=== PATIENT | male | born 1995 | race Asian ===

== ENCOUNTER 2023-03-28 22:27 | Emergency (ER) | payer BC, SELFPAY ==
[2023-03-28 22:31] VITALS: BP 122/90; PULSE 118; RESP 18; TEMP 36.1; BMI 26.7
[2023-03-28 22:33] VITALS: BP 122/90; PULSE 118; RESP 18; TEMP 36.1
--- NOTE | 2023-03-28 22:50 | EDS_ITS ---
HPI History of Present Illness Chief Complaint: Rash Informant: patient and spouse/S.O. Narrative Narrative: Patient is a 28-year-old male with no significant past medical history. Patient states that 2 days ago he ate some shrimp and food. He states that following this began with his whole body itching and then progressed to a red rash . He states that his does not have the rash and he denies any new exposures other than the food . Patient states that he had a similar reaction after eating similar food roughly 1 year ago and it resolved with just kgcf-qaa-khetfeb medication . He states he is try the bvnz-gju-pvokjse medication without any symptom improvement and secondary to this comes in for evaluation . [facility] History no medical history no medical history Home Medications prednisone 10 mg tablet 10 mg PO DAILY #48 TABLETS 03/28/23 [Rx Last Taken Unknown] Allergy/AdvReac Type Severity Reaction Status Date / Time No Known Allergies Allergy Verified 03/28/23 22:29 Social History Smoking Status: Never smoker [facility] ED Constitutional Constitutional ED: Denies chills or fever(s) ENT ENT ED: Denies sore throat Cardiovascular Cardiovascular: Denies chest pain Respiratory/Chest Respiratory/Chest: Denies cough or dyspnea Gastrointestinal Gastrointestinal: Denies abdominal pain, diarrhea, nausea or vomiting Genitourinary Genitourinary ED: Denies dysuria Musculoskeletal Musculoskeletal: Denies myalgias Integumentary Reports rash Neurologic Neurologic: Denies headache(s) Hematologic/Lymphatic Hematologic/Lymphatic: Denies easy bleeding or easy bruising EXAM Physical Exam Const Vital Signs: 03/28/23 22:31 03/28/23 22:33 Temperature 96.9 F L 96.9 F L Temperature Source Temporal Temporal Pulse Rate 118 H 118 H Respiratory Rate 18 18 Blood Pressure 122/90 H 122/90 H Blood Pressure Mean 100 100 Positive well nourished and well developed General Appearance ED: well developed HEENT Reports moist mucous membranes HEENT Narrative: No tongue or lip swelling no oral lesions no airway edema or compromise Eyes PERRL and EOMs intact bilaterally Neck supple Resp normal respiratory effort and clear to auscultation bilaterally Cardio regular rate and regular rhythm Extremity normal to inspection Neuro oriented x3, CN's II-XII intact bilaterally and no sensory deficits noted Sensorium / Orientation: alert Motor Exam: strength 5/5 throughout Psych mental status grossly normal Skin Skin Narrative: Patient has a erythematous blanchable urticarial rash that extends from his head/face into the chest abdomen back both arms and legs without involvement of the palms or soles MDM MDM MDM Narrative Medical decision making narrative: Presented to the ER in no acute respiratory distress without airway compromise. Therefore I felt no need for emergent imaging studies laboratory testing or airway stabilization. Differential diagnosis is for acute allergic reaction versus ghfk-ltaf-dur-mouth disease versus varicella-zoster. As the patient has no vomit of the palms or soles no pustule lesions no lesions in different stages of healing history and exam is most consistent with acute allergic reaction. At this time as there is no airway compromise or signs of airway edema patient will be given Kenalog and then placed on a prednisone taper but as he is not requiring airway stabilization and this is an inflammatory not infectious reaction he is otherwise safe for discharge History & Record Review Discussion w/independent historian: Patient and Significant other Discharge Plan Triage Chief Complaint: Rash ED Provider: Tank Hunter Dx/Rx/DC Orders Clinical Impression: Urticaria, Allergic reaction Instructions: ED Rodrick (Adult), Allergy Overview Prescriptions: New prednisone 10 mg tablet 10 mg PO DAILY Qty: 48 0RF Rx Instructions: 6 po qd x 3 days, 4 po qd x 3 days, 2 po qd x 3 days, 1 po qd x 3 days Primary Care Provider: Care Physician,No Primary Referrals: Care Physician,No Primary [Primary Care Provider] - Activity Restrictions/Additional Instructions: Please take the steroids as prescribed to help control/resolve your allergic reaction. It would typically take approximately 3 days for the reaction to improve. If you develop a fever over 100.4 or have difficulty breathing or swallowing or any further concerns please return to the ER for repeat evaluation. Disposition Disposition: Home, Self Care
[2023-03-28] MEDS: Triamcinolone Acetonide 40 MG/ML Vial 80 MG IM (23:09)
== END 2023-03-28 23:47 | disposition home or self-care (01) ==
LOC: ED 23:28
PROVIDERS: Emergency Provider Emergency Medicine; Visit Provider Emergency Medicine
DX: L50.9 Urticaria, unspecified (principal); T78.40XA Allergy, unspecified, initial encounter; X58.XXXA Exposure to other specified factors, initial encounter
CPT/HCPCS: 96372; 99282

== ENCOUNTER 2023-03-31 00:01 | Emergency (ER) | payer BC, SELFPAY ==
[2023-03-31 00:02] VITALS: BP 121/75; PULSE 79; RESP 16; TEMP 36.8; O2SAT 99; BMI 26.4
--- NOTE | 2023-03-31 01:07 | ED.RN ---
Pt and called out 3 times in last 15 minutes asking why it's taking so long to see the MD. Education provided.
--- NOTE | 2023-03-31 01:50 | EDS_ITS ---
HPI History of Present Illness Chief Complaint: Rash Informant: patient and spouse/S.O. Narrative Narrative: Patient is a 28-year-old male with no significant past medical history who was seen recently secondary to acute allergic reaction and placed on a prednisone taper. Patient states he has been taking the prednisone as directed and this had resolution of the rash but he still has noticed persistent itching and secondary to this comes in for evaluation [facility] Home Medications prednisone 10 mg tablet 10 mg PO DAILY #48 TABLETS 03/28/23 [Rx Last Taken Unknown] desonide 0.05 % topical cream 1 applic topical TID PRN itching #60 grams 03/31/23 [Rx Last Taken Unknown] hydroxyzine pamoate 25 mg capsule 25 mg PO 4X/DAY PRN PRN itching #40 caps 03/31/23 [Rx Last Taken Unknown] Allergy/AdvReac Type Severity Reaction Status Date / Time No Known Allergies Allergy Verified 03/31/23 00:02 Social History Smoking Status: Never smoker [facility] ED Constitutional Constitutional ED: Denies chills or fever(s) ENT ENT ED: Denies sore throat Cardiovascular Cardiovascular: Denies chest pain Respiratory/Chest Respiratory/Chest: Denies cough or dyspnea Gastrointestinal Gastrointestinal: Denies abdominal pain, diarrhea, nausea or vomiting Genitourinary Genitourinary ED: Denies dysuria Musculoskeletal Musculoskeletal: Denies myalgias Integumentary Reports rash Neurologic Neurologic: Denies headache(s) Hematologic/Lymphatic Hematologic/Lymphatic: Denies easy bleeding or easy bruising EXAM Physical Exam Const Vital Signs: 03/31/23 00:02 03/31/23 02:12 Temperature 98.3 F Temperature Source Temporal Pulse Rate 79 76 Respiratory Rate 16 16 Blood Pressure 121/75 H Blood Pressure Mean 90 Pulse Ox 99 98 Oxygen Delivery Method Room Air Positive well nourished and well developed General Appearance ED: well developed HEENT Reports moist mucous membranes HEENT Narrative: No tongue or lip swelling No oral lesions no airway edema or compromise Eyes PERRL and EOMs intact bilaterally Neck supple Resp normal respiratory effort and clear to auscultation bilaterally Cardio regular rate and regular rhythm Extremity normal to inspection Neuro oriented x3, CN's II-XII intact bilaterally and no sensory deficits noted Sensorium / Orientation: alert Motor Exam: strength 5/5 throughout Psych mental status grossly normal Skin Skin Narrative: The patient's urticarial lesions from the previous day have resolved. There is no soft tissue swelling or rash noted to the palms or soles. Patient does demonstrate dermatographia with areas of erythema after scratching but no secondary changes to suggest infection MDM MDM MDM Narrative Medical decision making narrative: Patient presented to the ER with stable vitals and he had no signs of respiratory distress or airway compromise. His rash from previous day had resolved but he reported persistent itching. At this time he does not have oral lesions and my concern for Mekhi Pablo syndrome is low and he does not have signs of herpes zoster or varicella zoster or cellulitis or abscess. Therefore I feel he does need to improved histamine control and he will be given hydroxyzine and desonide but as he does not have signs of infection or respiratory distress and the rash is improving there is no need for work-up and he is otherwise safe for discharge. History & Record Review Discussion w/independent historian: Patient and Significant other Discharge Plan Triage Chief Complaint: Rash ED Provider: Tank Hunter Dx/Rx/DC Orders Clinical Impression: Allergic reaction Instructions: Allergy Overview Prescriptions: New desonide 0.05 % cream 1 applic topical TID PRN (Reason: itching) Qty: 60 1RF hydroxyzine pamoate 25 mg capsule 25 mg PO 4X/DAY PRN PRN (Reason: itching) Qty: 40 1RF No Action prednisone 10 mg tablet 10 mg PO DAILY Qty: 48 0RF Rx Instructions: 6 po qd x 3 days, 4 po qd x 3 days, 2 po qd x 3 days, 1 po qd x 3 days Primary Care Provider: Care Physician,No Primary Referrals: Missy Gordon MD [Med Staff - Animation Artist] - Care Physician,No Primary [Primary Care Provider] - Activity Restrictions/Additional Instructions: Continue the prednisone/steroid as directed as it is causing improvement of your symptoms. However because you have persistent itch you may take the hydroxyzine up to 4 times a day as needed and at the topical steroid cream/desonide as well to help control itch. Please considering following up with an music executive to find out what is causing your recurrent allergic reaction and if you have any difficulty breathing or swallowing please return to the ER for repeat evaluation Disposition Disposition: Home, Self Care Discharge Date/Time: 03/31/23 02:14
[2023-03-31] MEDS: Famotidine 20 MG Tablet 40 MG PO (01:54)
[2023-03-31] MEDS: hydrOXYzine 50 MG/ML Vial 100 MG IM (01:55)
[2023-03-31 02:12] VITALS: PULSE 76; RESP 16; O2SAT 98
== END 2023-03-31 02:14 | disposition home or self-care (01) ==
PROVIDERS: Emergency Provider Emergency Medicine; Visit Provider Emergency Medicine
DX: T78.40XA Allergy, unspecified, initial encounter (principal)
CPT/HCPCS: 99282